=== PATIENT | female | born 2000 | race American Indian/Alaskan Native ===

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

== ENCOUNTER 2021-05-12 11:46 | Emergency (ER) | payer MEDICAID ==
[2021-05-12 13:21] VITALS: BP 115/77
[2021-05-12] MEDS ORDERED: ACETAMINOPHEN 325 MG TAB PO ONE (13:36)
--- NOTE | 2021-05-12 13:45 | Emergency Department Report ---
ED HPI - General Chief complaint: Vaginal Bleeding Stated complaint: 14 WEEKS , ABD PAIN, LOW BACK CRAMPS Time Seen by Provider: 05/12/21 13:30 Source: patient Mode of arrival: Ambulatory Limitations: No Limitations - History of Present Illness Initial comments: Patient is a 20-year-old female presents emergency room with complaints of vaginal spotting that occurred today. She states that she had one episode of spotting when she went to the bathroom. She denies any heavy bleeding or passing clots. She states that she also has lower abdominal cramping which she has had throughout her . She states that the cramping feels slightly worse and she feels it in her back. She states that she is currently 14 weeks . Patient states that she goes to [facility]. She states that she has had normal ultrasounds with them. She states that she does have ovarian cyst. She denies any fever, nausea, vomiting, diarrhea, dysuria, abnormal vaginal discharge. She states this is her first . No other past medical history. No allergies to medications. - Related Data Previous Rx's Medication Instructions Recorded Last Taken Type Acetaminophen/Codeine [Tylenol 1 tab PO Q6H PRN #15 tab 04/26/18 Unknown Rx /Codeine # 3 tab] Ibuprofen [Motrin] 800 mg PO Q8HR PRN #30 tablet 04/26/18 Unknown Rx Allergies Allergy/AdvReac Type Severity Reaction Status Date / Time No Known Allergies Allergy Verified 04/26/18 15:21 ED Review of Systems ROS: Stated complaint: 14 WEEKS , ABD PAIN, LOW BACK CRAMPS Other details as noted in HPI Comment: All other systems reviewed and negative ED Past Medical Hx - Past Medical History Previous Medical History?: No - Surgical History Past Surgical History?: No - Social History Smoking Status: Current Every Day Smoker - Medications Home Medications: Home Medications Medication Instructions Recorded Confirmed Last Taken Type Acetaminophen/Codeine [Tylenol 1 tab PO Q6H PRN #15 tab 04/26/18 Unknown Rx /Codeine # 3 tab] Ibuprofen [Motrin] 800 mg PO Q8HR PRN #30 tablet 04/26/18 Unknown Rx ED Physical Exam - General Limitations: No Limitations General appearance: alert, in no apparent distress - Head Head exam: Present: atraumatic, normocephalic - Eye Eye exam: Present: normal appearance - ENT ENT exam: Present: mucous membranes moist - Respiratory Respiratory exam: Present: normal lung sounds bilaterally. Absent: respiratory distress, wheezes, rales, rhonchi, stridor, chest wall tenderness, accessory muscle use, decreased breath sounds, prolonged expiratory - Cardiovascular Cardiovascular Exam: Present: regular rate, normal rhythm, normal heart sounds. Absent: systolic murmur, diastolic murmur, rubs, gallop - GI/Abdominal GI/Abdominal exam: Present: soft, normal bowel sounds. Absent: distended, tenderness, guarding, rebound, rigid - Neurological Exam Neurological exam: Present: alert, oriented X3 - Psychiatric Psychiatric exam: Present: normal affect, normal mood - Skin Skin exam: Present: warm, dry, intact ED Course Vital Signs 05/12/21 13:09 Temperature 98.9 F Pulse Rate 70 Respiratory 18 Rate Blood Pressure 115/77 O2 Sat by Pulse 99 Oximetry ED Medical Decision Making - Lab Data Result diagrams: 05/12/21 14:33 05/12/21 14:33 Lab Results 05/12/21 05/12/21 05/12/21 Range/Units 14:33 14:33 14:33 WBC 6.4 (4.5-11.0) K/mm3 RBC 3.97 (3.65-5.03) M/mm3 Hgb 13.0 (10.1-14.3) gm/dl Hct 36.7 (30.3-42.9) % MCV 93 (79-97) fl MCH 33 H (28-32) pg MCHC 35 H (30-34) % RDW 12.9 L (13.2-15.2) % Plt Count 223 (140-440) K/mm3 Lymph % (Auto) 34.0 (13.4-35.0) % [place] % (Auto) 6.6 (0.0-7.3) % Eos % (Auto) 0.8 (0.0-4.3) % Baso % (Auto) 0.5 (0.0-1.8) % Lymph # (Auto) 2.2 (1.2-5.4) K/mm3 [place] # (Auto) 0.4 (0.0-0.8) K/mm3 Eos # (Auto) 0.0 (0.0-0.4) K/mm3 Baso # (Auto) 0.0 (0.0-0.1) K/mm3 Seg Neutrophils % 58.1 (40.0-70.0) % Seg Neutrophils # 3.7 (1.8-7.7) K/mm3 Sodium 134 L (137-145) mmol/L Potassium 3.5 L (3.6-5.0) mmol/L Chloride 98.8 (98-107) mmol/L Carbon Dioxide 27 (22-30) mmol/L Anion Gap 12 mmol/L BUN 4 L (7-17) mg/dL Creatinine 0.6 (0.6-1.2) mg/dL Estimated GFR > 60 ml/min BUN/Creatinine Ratio 7 % Glucose 75 (65-100) mg/dL Calcium 9.1 (8.4-10.2) mg/dL Total Bilirubin 0.40 (0.1-1.2) mg/dL AST 12 (5-40) units/L ALT 9 (7-56) units/L Alkaline Phosphatase 51 (35-129) units/L Total Protein 6.9 (6.3-8.2) g/dL Albumin 4.1 (3.9-5) g/dL Albumin/Globulin Ratio 1.5 % HCG, Quant 78351 H (0-4) mIU/mL Urine Color (Yellow) Urine Turbidity (Clear) Urine pH (5.0-7.0) Ur Specific Reserve (1.003-1.030) Urine Protein (Negative) mg/dL Urine Glucose (UA) (Negative) mg/dL Urine Ketones (Negative) mg/dL Urine Blood (Negative) Urine Nitrite (Negative) Urine Bilirubin (Negative) Urine Urobilinogen (<2.0) mg/dL Ur Leukocyte Esterase (Negative) Urine WBC (Auto) (0.0-6.0) /HPF Urine RBC (Auto) (0.0-6.0) /HPF U Epithel Cells (Auto) (0-13.0) /HPF Urine Mucus /HPF Blood Type 05/12/21 05/12/21 Range/Units Unknown Unknown WBC (4.5-11.0) K/mm3 RBC (3.65-5.03) M/mm3 Hgb (10.1-14.3) gm/dl Hct (30.3-42.9) % MCV (79-97) fl MCH (28-32) pg MCHC (30-34) % RDW (13.2-15.2) % Plt Count (140-440) K/mm3 Lymph % (Auto) (13.4-35.0) % [place] % (Auto) (0.0-7.3) % Eos % (Auto) (0.0-4.3) % Baso % (Auto) (0.0-1.8) % Lymph # (Auto) (1.2-5.4) K/mm3 [place] # (Auto) (0.0-0.8) K/mm3 Eos # (Auto) (0.0-0.4) K/mm3 Baso # (Auto) (0.0-0.1) K/mm3 Seg Neutrophils % (40.0-70.0) % Seg Neutrophils # (1.8-7.7) K/mm3 Sodium (137-145) mmol/L Potassium (3.6-5.0) mmol/L Chloride (98-107) mmol/L Carbon Dioxide (22-30) mmol/L Anion Gap mmol/L BUN (7-17) mg/dL Creatinine (0.6-1.2) mg/dL Estimated GFR ml/min BUN/Creatinine Ratio % Glucose (65-100) mg/dL Calcium (8.4-10.2) mg/dL Total Bilirubin (0.1-1.2) mg/dL AST (5-40) units/L ALT (7-56) units/L Alkaline Phosphatase (35-129) units/L Total Protein (6.3-8.2) g/dL Albumin (3.9-5) g/dL Albumin/Globulin Ratio % HCG, Quant (0-4) mIU/mL Urine Color Yellow (Yellow) Urine Turbidity Clear (Clear) Urine pH 7.0 (5.0-7.0) Ur Specific Reserve 1.015 (1.003-1.030) Urine Protein <15 mg/dl (Negative) mg/dL Urine Glucose (UA) Neg (Negative) mg/dL Urine Ketones Neg (Negative) mg/dL Urine Blood Neg (Negative) Urine Nitrite Neg (Negative) Urine Bilirubin Neg (Negative) Urine Urobilinogen < 2.0 (<2.0) mg/dL Ur Leukocyte Esterase Neg (Negative) Urine WBC (Auto) 2.0 (0.0-6.0) /HPF Urine RBC (Auto) 2.0 (0.0-6.0) /HPF U Epithel Cells (Auto) 6.0 (0-13.0) /HPF Urine Mucus Few /HPF Blood Type O POSITIVE - Radiology Data Radiology results: report reviewed Ordering Physician: ERICKA BARRY Date of Service: 05/12/21 Procedure(s): US OB >= 14 weeks Fetus Accession Number(s): [id number] cc: ERICKA BARRY ULTRASOUND OBSTETRIC INDICATION / CLINICAL INFORMATION: 14 weeks prengnant, cramping, spotting. Clinical Gestational Age (GA): TECHNIQUE: Transabdominal. COMPARISON: None available. FINDINGS: There is a single intrauterine . Biparietal Diameter = 2.8 cm = 14 weeks, 6 day(s). Head Circumference = 10.7 cm = 15 weeks, 1 day(s). Abdominal Circumference = 8.6 cm = 14 weeks, 6 day(s). Femur Length = 1.7 cm = 15 weeks, 1 day(s). Average Ultrasound Age (AUA) = 15 weeks, 0 day(s). Heart Rate: 153 beats per minute. Estimated Weight in grams (if calculated): Estimated Weight Growth Percentile (if calculated): Position: cephalic. Cervix: closed. Length in cm (if measured): 3.1 Placenta: anterior and free of the os. Amniotic Fluid Volume: normal Amniotic Fluid Index (ALLISON) in cm (if calculated): . Maternal Adnexa: No significant abnormality. Small left ovarian cyst IMPRESSION: 1. Single, living intrauterine with estimated sonographic age of 15 weeks, 0 day(s). 2. No significant sonographic abnormality. Signer Name: Sae Magallanes MD Signed: 05/12/2021 2:54 PM Workstation Name: [id number] Transcribed By: TANNER Dictated By: Sae Magallanes MD Electronically Authenticated By: Sae Magallanes MD Signed Date/Time: 05/12/21 145 DD/ 51 TD/TT: - Medical Decision Making Patient is a 20-year-old female presents emergency room with complaints of vaginal spotting that occurred today. She states that she had one episode of spotting when she went to the bathroom. She denies any heavy bleeding or passing clots. She states that she also has lower abdominal cramping which she has had throughout her . She states that the cramping feels slightly worse and she feels it in her back. She states that she is currently 14 weeks . Patient states that she goes to [facility]. She states that she has had normal ultrasounds with them. She states that she does have ovarian cyst. She denies any fever, nausea, vomiting, diarrhea, dysuria, abnormal vaginal discharge. She states this is her first . No other past medical history. No allergies to medications. Vitals are normal. No abdominal tenderness on exam, no guarding, no rebound, no rigidity, normal bowel sounds, no peritoneal signs. Labs are stable. Patient is Rh-. UA without evidence of UTI, red blood cells, or dehydration. OB ultrasound: 1. Single, living intrauterine with estimated sonographic age of 15 weeks, 0 day(s). 2. No significant sonographic abnormality. Discussed all results with patient and answer questions. Discussed the importance of PHARMACY AIDE follow-up for reexamination. Discussed return precautions. Advised patient May take Tylenol as needed for any discomfort. Increase your fluid intake. Please continue to take a vitamin. Follow-up with PHARMACY AIDE. Return to emergency room for new or symptoms. Critical care attestation.: If time is entered above; I have spent that time in minutes in the direct care of this critically ill patient, excluding procedure time. ED Disposition Clinical Impression: Abdominal pain affecting , Vaginal spotting Disposition: - TO HOME OR SELFCARE Is pt being admited?: No Does the pt Need Aspirin: No Condition: Stable Instructions: Vaginal Bleeding During , Second Trimester, [id number] Additional Instructions: May take Tylenol as needed for any discomfort. Increase your fluid intake. Please continue to take a vitamin. Follow-up with PHARMACY AIDE. Return to emergency room for new or symptoms. Referrals: your, director of planning [Other] - 2-3 Days PRIMARY CARE, [Primary Care Provider] - 2-3 Days Time of Disposition: 16:05 Print Language: ARABIC
[2021-05-12 14:07] LABS: Bilirubin,Urine NEG (Negative); Blood,Urine NEG (Negative); Color,Urine Yellow (Yellow); Mucus,Urine FEW /HPF; Protein,Urine <15 mg/dL mg/dL (Negative); Urobilinogen,Urine < 2.0 mg/dL (<2.0)
[2021-05-12 14:53] LABS: Basophils % (Auto) 0.5 % (0.0-1.8); Eosinophils % (Auto) 0.8 % (0.0-4.3); Hematocrit 36.7 % (30.3-42.9); Lymphocytes # (Auto) 2.2 K/mm3 (1.2-5.4); Mean Corpuscular HGB Conc 35 % (30-34); Mean Corpuscular Volume 93 fl (79-97); Monocytes # (Auto) 0.4 K/mm3 (0.0-0.8); Monocytes % (Auto) 6.6 % (0.0-7.3); Platelet Count 223 K/mm3 (140-440); Red Blood Count 3.97 M/mm3 (3.65-5.03); Red Cell Distribution Width 12.9 % (13.2-15.2)
--- NOTE | 2021-05-12 14:59 | Ultrasound Report ---
ULTRASOUND OBSTETRIC INDICATION / CLINICAL INFORMATION: 14 weeks prengnant, cramping, spotting. Clinical Gestational Age (GA): TECHNIQUE: Transabdominal. COMPARISON: None available. FINDINGS: There is a single intrauterine . Biparietal Diameter = 2.8 cm = 14 weeks, 6 day(s). Head Circumference = 10.7 cm = 15 weeks, 1 day(s). Abdominal Circumference = 8.6 cm = 14 weeks, 6 day(s). Femur Length = 1.7 cm = 15 weeks, 1 day(s). Average Ultrasound Age (AUA) = 15 weeks, 0 day(s). Heart Rate: 153 beats per minute. Estimated Weight in grams (if calculated): Estimated Weight Growth Percentile (if calculated): Position: cephalic. Cervix: closed. Length in cm (if measured): 3.1 Placenta: anterior and free of the os. Amniotic Fluid Volume: normal Amniotic Fluid Index (ALLISON) in cm (if calculated): . Maternal Adnexa: No significant abnormality. Small left ovarian cyst IMPRESSION: 1. Single, living intrauterine with estimated sonographic age of 15 weeks, 0 day(s). 2. No significant sonographic abnormality. Signer Name: Sae Magallanes MD Signed: 05/12/2021 2:54 PM Workstation Name: [id number]
[2021-05-12 15:10] LABS: Alanine Aminotransferase 9 units/L (7-56); Albumin 4.1 g/dL (3.9-5); Blood Urea Nitrogen 4 mg/dL (7-17); Calcium 9.1 mg/dL (8.4-10.2); Hemolysis Index 1
[2021-05-12 15:26] LABS: BUN/Creatinine Ratio 7
== END 2021-05-12 16:35 | disposition home or self-care (01) ==
LOC: ED 11:46
DX: O20.8 Other hemorrhage in early pregnancy (principal); O26.891 Other specified pregnancy related conditions, first trimester; R10.30 Lower abdominal pain, unspecified; F17.200 Nicotine dependence, unspecified, uncomplicated; Z3A.14 14 weeks gestation of pregnancy; Z79.1 Long term (current) use of non-steroidal anti-inflammatories (NSAID); Z79.899 Other long term (current) drug therapy
CPT/HCPCS: 36415; 76805; 80053; 81001; 84702; 85025; 86900; 86901